=== PATIENT | female | born 1965 | race Caucasian/White ===

== ENCOUNTER 2024-09-25 08:37 | Day surgery (SDC) | payer MEDICAID ==
[~2024-09-25] VITALS: Ht 167.6 cm; Wt 61.4 kg
[2024-09-25] VITALS (7 sets, daily range): BP systolic 107–193; BP diastolic 77–111; PULSE 102–112; RESP 11–18; TEMP 98.6; O2SAT 98–100
[~2024-09-25 08:37] MED LIST: ALBUTEROL HHN; BUPR150T8 PO; HYDR-3686 PO; LOVA20TA2 PO; RISP3TAB77 PO; TRAZ-251 PO; TRULICITY
[2024-09-25] MEDS ORDERED: propofol inj 20 ML IV ONE ×2 (09:57→10:04)
== END 2024-09-25 11:45 | disposition home or self-care (01) ==
LOC: GI LAB 08:37
PROVIDERS: ATTEND Internal Medicine Gastroenterology
DX: K52.9 Noninfective gastroenteritis and colitis, unspecified (principal); D12.3 Benign neoplasm of transverse colon; K62.1 Rectal polyp; K57.30 Diverticulosis of large intestine without perforation or abscess without bleeding; I10 Essential (primary) hypertension; E11.9 Type 2 diabetes mellitus without complications; J44.9 Chronic obstructive pulmonary disease, unspecified; N20.0 Calculus of kidney; F41.9 Anxiety disorder, unspecified; F31.9 Bipolar disorder, unspecified; B19.20 Unspecified viral hepatitis C without hepatic coma; F17.210 Nicotine dependence, cigarettes, uncomplicated; Z98.890 Other specified postprocedural states; Z79.899 Other long term (current) drug therapy
CPT/HCPCS: 45380; 45385; 82948; J2704; J7030; Z7512; C1889